=== PATIENT | female | born 1960 | race Caucasian/White ===

== ENCOUNTER 2017-10-31 17:02 | Emergency (ER) | payer MEDICARE ==
[2017-10-31 17:08] VITALS: BP 169/79
== END 2017-10-31 18:55 | disposition left against medical advice (07) ==
LOC: ED 17:02
DX: M79.643 Pain in unspecified hand (principal); Z53.21 Procedure and treatment not carried out due to patient leaving prior to being seen by health care provider

== ENCOUNTER 2017-11-01 13:08 | Emergency (ER) | payer MEDICARE ==
[2017-11-01] MEDS ORDERED: predniSONE TAB* 20 MG PO ONE (14:01)
[2017-11-01] MEDS ORDERED: oxyCODONE TAB* 5 MG TAB PO ONE (14:39)
[2017-11-01 14:45] LABS: ABS Basophils 0.1 10^3/ul (0-0.2); ABS Eosinophils 0.2 10^3/ul (0-0.6); ABS Lymphocytes 1.8 10^3/ul (1.0-4.8); ABS Monocytes 0.6 10^3/ul (0-0.8); ABS Neutrophils 6.3 10^3/ul (1.5-7.7); ABS Nucleated RBC 0 10^3/ul; Eosinophil % 2.2 % (0-6); Hematocrit 41 % (35-47); Hemoglobin 14.3 g/dl (12.0-16.0); Lymphocyte % 19.7 % (25-47); Mean Corpuscular HGB Conc 35 g/dl (31-36); Mean Corpuscular Hemoglobin 32 pg (27-31); Mean Corpuscular Volume 92 fL (80-97); Mean Platelet Volume 7.2 um3 (7.4-10.4); Nucleated Red Blood Cells % 0.3; Platelet Count 303 10^3/ul (150-450); Red Blood Count 4.52 10^6/ul (4.0-5.4); Red Cell Distribution Width 15 % (10.5-15); White Blood Count 8.9 10^3/ul (3.5-10.8)
[2017-11-01 15:08] LABS: EGFR Non-African American 79.4 (>60)
[2017-11-01 16:09] VITALS: BP 179/87
--- NOTE | 2017-11-01 19:04 | ED ---
Tommy Moss Elizabeth, scribed for Wilfred Carrillo on 11/01/17 at 1435 . Complex/Multi-Sys Presentation - HPI Summary HPI Summary: The patient is a 57 year old female complaining of pain in her wrists, shoulders and legs for the past 2 weeks. The patient additionally complains of back pain, migraines when lying down, and inability to stand or walk due to pain. Patient has been previously diagnosed with arthritis. Patient usually takes prednisone and oxycodone for her arthritis. - History Of Current Complaint Chief Complaint: EDGeneral Time Seen by Provider: 11/01/17 13:47 Hx Obtained From: Patient Onset/Duration: Lasting Weeks - present for the last 2 weeks, Still Present Timing: Constant Severity Currently: Moderate Associated Signs And Symptoms: Positive: Headache - migraines when lying down, Back Pain, Other - pain in wrists, shoulders, and legs Related History: Other - arthritis - Allergies/Home Medications Allergies/Adverse Reactions: Allergies Allergy/AdvReac Type Severity Reaction Status Date / Time shellfish derived Allergy Swelling Verified 10/31/17 17:05 PMH/Surg Hx/FS Hx/Imm Hx Musculoskeletal History: Reports: Hx Arthritis Denies: Hx Osteoporosis Sensory History: Denies: Hx Deafness Infectious Disease History: No Infectious Disease History: Denies: Traveled Outside the [place] in Last 30 Days - Family History Known Family History: Negative: Diabetes Review of Systems Positive: Arthralgia - pain in wrists, shoulders, and legs Positive: Headache - migraines when lying down All Other Systems Reviewed And Are Negative: Yes Physical Exam - Summary Physical Exam Summary: Appearance: Well appearing, no pain distress Skin: warm, dry, reflects adequate perfusion Head/face: normal Eyes: EOMI, ERIC ENT: normal Neck: supple, non-tender Respiratory: CTA, breath sounds present Cardiovascular: RRR, pulses symmetrical Abdomen: non-tender, soft Bowel: present Musculoskeletal: strength/ROM intact, swelling of of bilateral hands, swelling of the right index finger over the metacarpal-phalangeal joint, Neuro: normal, sensory motor intact, A&Ox3 Triage Information Reviewed: Yes Vital Signs On Initial Exam: Initial Vitals Temp Pulse Resp BP Pulse Ox 97.4 F 76 14 168/96 97 11/01/17 13:18 11/01/17 13:18 11/01/17 13:18 11/01/17 13:18 11/01/17 13:18 Vital Signs Reviewed: Yes Diagnostics - Vital Signs Vital Signs Temp Pulse Resp BP Pulse Ox 11/01/17 13:18 97.4 F 76 14 168/96 97 - Laboratory Lab Results: Lab Results 11/01/17 11/01/17 Range/Units 14:34 14:34 WBC 8.9 (3.5-10.8) 10^3/ul RBC 4.52 (4.0-5.4) 10^6/ul Hgb 14.3 (12.0-16.0) g/dl Hct 41 (35-47) % MCV 92 (80-97) fL MCH 32 H (27-31) pg MCHC 35 (31-36) g/dl RDW 15 (10.5-15) % Plt Count 303 (150-450) 10^3/ul MPV 7.2 L (7.4-10.4) um3 Neut % (Auto) 70.1 (38-83) % Lymph % (Auto) 19.7 L (25-47) % Stearns % (Auto) 6.7 (0-7) % Eos % (Auto) 2.2 (0-6) % Baso % (Auto) 1.3 (0-2) % Absolute Neuts (auto) 6.3 (1.5-7.7) 10^3/ul Absolute Lymphs (auto) 1.8 (1.0-4.8) 10^3/ul Absolute Monos (auto) 0.6 (0-0.8) 10^3/ul Absolute Eos (auto) 0.2 (0-0.6) 10^3/ul Absolute Basos (auto) 0.1 (0-0.2) 10^3/ul Absolute Nucleated RBC 0 10^3/ul Nucleated RBC % 0.3 ESR 46 H (0-30) mm/Hr Sodium 134 (133-145) mmol/L Potassium 3.8 (3.5-5.0) mmol/L Chloride 99 L (101-111) mmol/L Carbon Dioxide 27 (22-32) mmol/L Anion Gap 8 (2-11) mmol/L BUN 11 (6-24) mg/dL Creatinine 0.75 (0.51-0.95) mg/dL Est GFR ( Amer) 102.1 (>60) Est GFR (Non-Af Amer) 79.4 (>60) BUN/Creatinine Ratio 14.7 (8-20) Glucose 265 H (70-100) mg/dL Calcium 9.3 (8.6-10.3) mg/dL Total Bilirubin 0.60 (0.2-1.0) mg/dL Direct Bilirubin 0.10 (0.03-0.18) mg/dL Indirect Bilirubin 0.5 (0.3-1.0) mg/dL AST 9 L (13-39) U/L ALT 8 (7-52) U/L Alkaline Phosphatase 87 (34-104) U/L Total Protein 7.4 (6.4-8.9) g/dL Albumin 3.7 (3.2-5.2) g/dL Globulin 3.7 (2-4) g/dL Albumin/Globulin Ratio 1.0 (1-3) Result Diagrams: 11/01/17 14:34 11/01/17 14:34 Lab Statement: Any lab studies that have been ordered have been reviewed, and results considered in the medical decision making process. Complex Multi-Symp Course/Dx Course Of Treatment: The patient is a 57 year old female complaining of arthritic pain in her wrists, shoulders and legs. Bloodwork obtained. In the ED course the patient was given oxycodone and prednisone. Patient will be discharged home with diagnosis of rheumatoid arthritis. Patient feels better after she was given steroids. Patient is instructed to follow up with primary care physician. The patient is agreeable with this plan. - Diagnoses Differential Diagnoses/HQI/PQRI: Other - r arthritis/hand pains Provider Diagnoses: Rheumatoid arthritis, Hand swelling Discharge - Sign-Out/Discharge Documenting (check all that apply): Discharge - discharge home - Discharge Plan Condition: Stable Disposition: HOME Prescriptions: methylPREDNISolone [Medrol] 4 mg PO ONCE #1 [id number] Patient Education Materials: Rheumatoid Arthritis (ED) Referrals: Fracisco Raya MD [Primary Care Provider] - Additional Instructions: follow up with primary care physician in 3 days. Return to the ED for any new or worsening symptoms - Billing Disposition and Condition Condition: STABLE Disposition: HOME The documentation as recorded by the Tommy lorenzana Elizabeth accurately reflects the service I personally performed and the decisions made by me, Wilfred Carrillo.
== END 2017-11-01 16:08 | disposition home or self-care (01) ==
LOC: ED 13:08
DX: M06.9 Rheumatoid arthritis, unspecified (principal); M79.89 Other specified soft tissue disorders; R51 Headache
CPT/HCPCS: 36415; 80053; 82248; 85025; 85652; 99282; A9270-GY; J7512

== ENCOUNTER 2018-09-14 17:06 | Emergency (ER) | payer MEDICARE ==
[2018-09-14] MEDS ORDERED: Ibuprofen TAB* 600 MG PO ONE (18:09)
--- NOTE | 2018-09-14 19:14 | ED ---
Lower Extremity - HPI Summary HPI Summary: Patient complains of right ankle and lateral wilkinson pain after hearing pop in her ankle when she stepped out of the shower. Patient denies twisting or landing wrong on her right foot. Patient ambulatory. Denies any other pain injury or symptoms. History of RA. - History of Current Complaint Chief Complaint: EDExtremityLower Stated Complaint: RT ANKLE PAIN Time Seen by Provider: 09/14/18 18:03 Hx Obtained From: Patient Mechanism Of Injury: Unknown Onset of Pain: Immediate Onset/Duration: Days Severity Initially: Severe Severity Currently: Severe Pain Intensity: 9 Pain Scale Used: 0-10 Numeric Timing: Constant Location: Is Discrete @ Character Of Pain: Aching, Throbbing Associated Signs And Symptoms: Positive: Negative Aggravating Factor(s): Ambulation, Weight Bearing Alleviating Factor(s): Rest, Elevation Able to Bear Weight: Yes - Allergies/Home Medications Allergies/Adverse Reactions: Allergies Allergy/AdvReac Type Severity Reaction Status Date / Time shellfish derived Allergy Swelling Verified 04/18/18 18:01 PMH/Surg Hx/FS Hx/Imm Hx Cardiovascular History: Denies: Hx Cardiac Arrest History: Denies: Hx Dialysis Musculoskeletal History: Reports: Hx Arthritis, Hx Rheumatoid Arthritis Denies: Hx Osteoporosis Sensory History: Denies: Hx Deafness Opthamlomology History: Denies: Hx Legally Blind EENT History: Denies: Hx Deafness Neurological History: Denies: Hx Dementia Comment Only: Other Neuro Impairments/Disorders - RHEUMATOID ARTHRITIS Psychiatric History: Denies: Hx Autism - Cancer History Hx Chemotherapy: No Hx Radiation Therapy: No Infectious Disease History: No Infectious Disease History: Denies: Traveled Outside the [place] in Last 30 Days - Family History Known Family History: Negative: Diabetes - Social History Alcohol Use: None Hx Substance Use: No Substance Use Type: Reports: None Smoking Status (MU): Never Smoked Tobacco Review of Systems Constitutional: Negative Eyes: Negative ENT: Negative Cardiovascular: Negative Respiratory: Negative Gastrointestinal: Negative Genitourinary: Negative Musculoskeletal: Other Skin: Negative Neurological: Negative Psychological: Normal All Other Systems Reviewed And Are Negative: Yes Physical Exam - Summary Physical Exam Summary: No evidence of trauma, erythema, ecchymosis, swelling, deformity noted to right ankle, foot, knee. Right calf is soft nontender, no swelling or erythema. PMS intact distally. Triage Information Reviewed: Yes Vital Signs On Initial Exam: Initial Vitals Temp Pulse Resp BP Pulse Ox 98.1 F 68 18 184/83 98 09/14/18 17:27 09/14/18 17:27 09/14/18 17:27 09/14/18 17:27 09/14/18 17:27 Vital Signs Reviewed: Yes Appearance: Positive: Well-Appearing Skin: Positive: Warm Head/Face: Positive: Normal Head/Face Inspection Eyes: Positive: Normal Neck: Positive: Supple Respiratory/Lung Sounds: Positive: Clear to Auscultation Cardiovascular: Positive: Normal Abdomen Description: Positive: Nontender Musculoskeletal: Positive: Normal Neurological: Positive: Normal Psychiatric: Positive: Normal AVPU Assessment: Alert - Paresh Coma Scale Best Eye Response: 4 - Spontaneous Best Motor Response: 6 - Obeys Commands Best Verbal Response: 5 - Oriented Coma Scale Total: 15 Diagnostics - Vital Signs Vital Signs Temp Pulse Resp BP Pulse Ox 09/14/18 17:27 98.1 F 68 18 184/83 98 - Laboratory Lab Statement: Any lab studies that have been ordered have been reviewed, and results considered in the medical decision making process. Lower Extremity Course/Dx - Course Course Of Treatment: Patient complains of right ankle and lateral wilkinson pain after hearing pop in her ankle when she stepped out of the shower. Patient denies twisting or landing wrong on her right foot. Patient ambulatory. Denies any other pain injury or symptoms. History of RA. Physical exam:No evidence of trauma, erythema, ecchymosis, swelling, deformity noted to right ankle, foot, knee. Right calf is soft nontender, no swelling or erythema. PMS intact distally. Vital signs within normal limits. X-ray of right lower extremity negative. Likely ankle sprain. gel Splint applied. Follow-up with orthopedics if symptoms persist. - Diagnoses Provider Diagnoses: Right ankle strain Discharge - Sign-Out/Discharge Documenting (check all that apply): Patient Departure Patient Received Moderate/Deep Sedation with Procedure: No - Discharge Plan Condition: Stable Disposition: HOME Patient Education Materials: Ankle Strain (ED) Referrals: Fracisco Raya MD [Primary Care Provider] - Jas Montiel MD [Medical Doctor] - Additional Instructions: Ibuprofen, ice rest and elevation for ankle pain. If symptoms persist more than 5 days follow-up with orthopedics Dr. Montiel for further evaluation. Return to the ED for any new or worsening symptoms. - Billing Disposition and Condition Condition: STABLE Disposition: Home
[2018-09-14 19:39] VITALS: BP 161/79
== END 2018-09-14 19:37 | disposition home or self-care (01) ==
LOC: ED 17:06
DX: S96.911A Strain of unspecified muscle and tendon at ankle and foot level, right foot, initial encounter (principal); X58.XXXA Exposure to other specified factors, initial encounter; Y93.E8 Activity, other personal hygiene; Y92.002 Bathroom of unspecified non-institutional (private) residence as the place of occurrence of the external cause; Z91.013 Allergy to seafood
CPT/HCPCS: 99282; A9270-GY

== ENCOUNTER → 2019-02-25 07:48 | Day surgery (SDC) | payer MEDICARE ==
[~2019-02-25 07:48] MED LIST: Betamethasone INJ* 6 MG/ML 5 ML VIAL (30 MG) ONE; Buffered Lidocaine 1% SYRIN* 1 ML/SYRINGE INTRADERM ONE; Bupivacaine 0.25% SDV* 30 ML ONE; HYDROcodone/ACETAMIN 5-325 MG* 1 TAB ONE; Lactated Ringers 1000 ML Bag* 1,000 ML IV SCH; Lidocaine 2% PF * 5 ML VIAL ONE; Naloxone* 0.4 MG/ML 1 ML VIAL IV PRN; Propofol* 10 MG/ML 20 ML BTL ONE; Sodium Citrate/Citric Acid* 15 ML UDC ONE; Sodium Citrate/Citric Acid* 15 ML UDC PO ONE; ceFAZolin 2 GM in NS PREMIX(*) 2 GM/100 ML BAG IVPB ONE; fentaNYL* 50 MCG/ML 2 ML VIAL (100 MCG VIAL) ONE
[2019-02-25] MEDS: fentaNYL* 50 MCG/ML 2 ML VIAL (100 MCG VIAL) IV PRN ×2 (12:05→12:23)
[2019-02-25 13:16] VITALS: BP 133/57
--- NOTE | 2019-02-25 17:00 | OP ---
DATE OF OPERATION: 02/25/19 - [facility] DATE OF : 58 SURGEON: Kevin Vieira MD FUSING MACHINE OPERATOR: HI Phan. An medical receptionist medical assistant was needed for the entirety of the procedure to aid in positioning of the arm and retraction. ANESTHESIOLOGIST: Dr. Foley. ANESTHESIA: General. PRE-OP DIAGNOSES: 1. Multiple right hand rheumatoid nodules including 3 on the right middle finger and 1 on the right small finger. 2. Right fourth dorsal compartment extensor tenosynovitis. POST-OP DIAGNOSES: 1. Multiple right hand rheumatoid nodules including 3 on the right middle finger and 1 on the right small finger. 2. Right fourth dorsal compartment extensor tenosynovitis. OPERATIVE PROCEDURE: 1. Excision of right hand dorsal MCP rheumatoid nodule with debridement of the right index finger MCP joint. 2. Excision of right dorsal index finger DIP joint rheumatoid nodule. 3. Excision of right middle finger volar DIP joint nodule sitting palmar to the FTP tendon. 4. Excision of the right middle finger dorsal PIP joint rheumatoid nodule with synovectomy of the joint. 5. Excision of right middle finger dorsal DIP joint large rheumatoid nodule. 6. Excision of right small finger PIP joint rheumatoid nodule. 7. Full tenosynovectomy of the right fourth dorsal compartment at the wrist and on the dorsum of the hand including under the retinaculum. INDICATIONS: Ryann has severe rheumatoid arthritis. She is on multiple medications. She has a lot of rheumatoid nodules on both hands. They are very large and she wants to see what can be done. I told her that there is a chance they can recur; however, they really protrude out and the one in the palm is very symptomatic and so, she is wondering if there is anything I could do to help her. Additionally, she has a lot of fourth dorsal compartment extensor tenosynovitis and I told her we opt to do a tenosynovectomy as that amount of rheumatoid tenosynovitis could lead to rupture. She agrees and wants to proceed. ESTIMATED BLOOD LOSS: 5 mL. COMPLICATIONS: None. FINDINGS: See above and below. DESCRIPTION OF PROCEDURE: Ryann was seen in the preoperative holding area. The correct side, site and procedure were identified. We came back to the operating room. The arm was prepped and draped in the usual fashion. A time- out was performed. The arm was exsanguinated with the Esmarch and the tourniquet was inflated to 250 mmHg. I first made a longitudinal incision over the dorsal and radial aspect of the second finger MCP joint. Full thickness skin flap was raised and the skin was from the nodule. This was taken out via marginal excision right down to the extensor mechanism. I identified the healthy extensor tendon proximally and traced the nodule out distally preserving the extensor mechanism. The radial sagittal band was quite eaten away by the nodule. I excised as much as possible. I went down deep and I got as much out of the joint as possible. Once I had fully excised and preserved the tendon to the extent possible, I irrigated out the wound, trimmed up the skin and closed that with 4-0 nylon. I then came distally over the dorsum of the DIP joint and made a T-shaped incision over the radial aspect of the joint, very large nodule within the similar fashion from the skin and then taken all the way down to the joint where it came out, that was excised and the joint debrided. The skin was closed. I then turned the palm over and made a longitudinal incision in the midline of the pulp. Dissection was carried down. The nodule was excised and taken out the distal aspect of the flexor tendon and preserving the insertion of the FTP tendon. It came out very cleanly. The wound was irrigated out and closed. I then came to the middle finger where I made 2 incisions, one directly over the dorsum of the PIP joint. A very large nodule was excised all the way down to the extensor tendon, it emanated from the radial aspect of the joint. I made a second incision over the radial mid-axial line and took out some of the nodule there. I was able to take it right out of the joint and do a synovectomy of the joint as well. After I had done that, I irrigated out the wound and the skin was trimmed and then closed with 4-0 nylon suture. I then came distally and excised very large bilobed nodule. There was a large nodule emanating from the radial aspect of the joint and one emanating from the ulnar aspect of the joint adjacent to the terminal extensor tendon. The terminal extensor tendon was preserved as I fully excised that and got it very clean looking. The skin was trimmed and the wound was closed with 4-0 nylon suture. Lastly, I made a mid-axial incision over the ulnar aspect of the small finger, a rheumatoid nodule there was excised, taken back to the joint where it was debrided out of the ulnar aspect of the joint. The wound was irrigated out and the skin was closed. I then made a longitudinal incision over the midline of the dorsum of the hand, extending down over the extensor retinaculum staying just ulnar to Myra tubercle, dissection was carried down. There was a large amount of reddish- brownish looking tenosynovitis that was eaten away at the tendons. The tendons were very frayed. The EIP was mostly ruptured and was sewn to the EDC of the second finger. Some tiny bit of full tenosynovectomy was performed until the tendons were looking very clean. There was a juncture between the third and fourth fingers that was repaired that had been ruptured. I got all of the tenosynovitis out from the under extensor retinaculum. It did not extend proximal to the retinaculum. Once everything was completely cleaned, I irrigated out the wound. I placed betamethasone all around the area of the tenosynovectomy and also I placed a little bit of betamethasone in each of the joint that I had debrided out. The dorsal wound was closed with 4-0 nylon suture. The wounds are dressed with Xeroform, 4 x 4, sterile Webril and then splint was applied. The splint did allow for some PIP and DIP joint flexion, but held the MP joints in extension. The tourniquet was deflated and she was taken to the recovery room in stable condition. [id number]/CPS #: [id number] [facility]
== END | disposition home or self-care (01) ==
LOC: OREAST 07:48
PROVIDERS: ATTEND Orthopaedic Surgery Hand Surgery
DX: M06.09 Rheumatoid arthritis without rheumatoid factor, multiple sites (principal); M65.841 Other synovitis and tenosynovitis, right hand; I10 Essential (primary) hypertension; E78.5 Hyperlipidemia, unspecified; E11.9 Type 2 diabetes mellitus without complications; Z79.84 Long term (current) use of oral hypoglycemic drugs; F17.210 Nicotine dependence, cigarettes, uncomplicated; F41.8 Other specified anxiety disorders; Z68.30 Body mass index [BMI] 30.0-30.9, adult; E07.9 Disorder of thyroid, unspecified
CPT/HCPCS: 88304; A9270-GY; J0690; J0702; J2704; J3010; J3490